=== PATIENT | male | born 1975 | race Hispanic/Latino ===

== ENCOUNTER 2018-12-21 19:36 | Emergency (ER) | payer OTHER ==
[2018-12-21 19:50] VITALS: BMI 39.7
[2018-12-21 19:56] VITALS: BP 175/108; PULSE 101; RESP 19; TEMP 98.4; O2SAT 98
--- NOTE | 2018-12-21 20:24 | ED PDOC ---
Arrival/HPI - General Historian: Patient - History of Present Illness Narrative History of Present Illness (Text): Patient is a 43 year old male with no significant history presenting with chief complaint of right ear pain which began after he hit the right side of his face on his car few days prior. He has applied warm compresses with no relief. He admits to hearing a popping sensation several times. Denies any discharge or bleeding from the ear. Time/Duration: 1 week Symptom Onset: Sudden Symptom Course: Unchanged Severity Level: Moderate <Kulwinder Stanton - Last Filed: 12/22/18 01:26> <Nestor Garcia - Last Filed: 12/22/18 06:03> - General Chief Complaint: ENT Problem Past Medical History - Provider Review Nursing Documentation Reviewed: Yes - Integumentary Hx Dermatological Disorder: Yes Other/Comment: skin biopsy to left hand. - Psychiatric Hx Substance Use: No <Kulwinder Stanton - Last Filed: 12/22/18 01:26> Family/Social History - Physician Review Nursing Documentation Reviewed: Yes Family/Social History: No Known Family HX Smoking Status: Never Smoked Hx Alcohol Use: No Hx Substance Use: No <Kulwinder Stanton - Last Filed: 12/22/18 01:26> Allergies/Home Meds <Kulwinder Stanton - Last Filed: 12/22/18 01:26> <Nestor Garcia - Last Filed: 12/22/18 06:03> Allergies/Adverse Reactions: Allergies environmental Allergy (Uncoded 12/21/18 19:50) CONGESTION Review of Systems - Physician Review All systems were reviewed & negative as marked: Yes - Review of Systems Eyes: absent: Vision Changes ENT: Hearing Changes. absent: Sore Throat, Rhinorrhea Respiratory: Normal Cardiovascular: Normal <Kulwinder Stanton - Last Filed: 12/22/18 01:26> Physical Exam Vital Signs Reviewed: Yes Vital Signs Temp Pulse Resp BP Pulse Ox 12/21/18 19:55 98.4 F 101 H 19 175/108 H 98 Temperature: Afebrile Blood Pressure: Hypertensive Pulse: Tachycardic Respiratory Rate: Normal Appearance: Positive for: Well-Appearing, Comfortable Pain Distress: None Mental Status: Positive for: Alert and Oriented X 3 - Systems Exam Head: Present: Atraumatic, Normocephalic Conjunctiva: Present: Normal Ears: Present: Erythema, Fluid Mouth: Present: Moist Mucous Membranes Nose (External): Present: Atraumatic <Kulwinder Stanton - Last Filed: 12/22/18 01:26> Vital Signs Temp Pulse Resp BP Pulse Ox 12/21/18 19:55 98.4 F 101 H 19 175/108 H 98 - Systems Exam Ears: Present: Other (exam of right ear) <Nestor Garcia - Last Filed: 12/22/18 06:03> Medical Decision Making ED Course and Treatment: Impression: 43 year old male with right ear pain Plan: - Clarithromycin - Reassess and disposition Prior Visits: Notes and results from previous visits were reviewed. Progress Notes: Patient appears comfortable, hemodynamically stable. Agrees to follow up with ENT and is in agreement with plan of management. <Kulwinder Stanton - Last Filed: 12/22/18 01:26> - Medication Orders Current Medication Orders: Discontinued Medications Clarithromycin (Biaxin Filmtab) 500 mg PO STAT STA; Protocol Stop: 12/21/18 20:36 Last Admin: 12/21/18 20:40 Dose: 500 mg Ibuprofen (Motrin Tab) 600 mg PO STAT STA Stop: 12/21/18 21:19 Last Admin: 12/21/18 21:28 Dose: 600 mg MAR Pain/Vitals Document 12/21/18 21:28 KASH (Rec: 12/21/18 21:28 CA [id number]) Pain Reassessment Is This A Pain ReAssessment? No Sleep Is patient sleeping during reassessment? No Presence of Pain Presence of Pain Yes Pain Scale Used Protocol: PSCALES Pain Scale Used Numeric Location Left, Right or Bilateral Right Pain Location Body Site Ear <Nestor Garcia - Last Filed: 12/22/18 06:03> - PA / MANAGER QUALITY COMPLIANCE / Resident Statement / has reviewed & agrees with the documentation as recorded. / has examined the patient and agrees with the treatment plan. <Nestor Garcia - Last Filed: 12/22/18 06:03> Disposition/Present on Arrival - Present on Arrival Any Indicators Present on Arrival: No History of DVT/PE: No History of Uncontrolled Diabetes: No Urinary Catheter: No History of Decub. Ulcer: No History Surgical Site Infection Following: None - Disposition Have Diagnosis and Disposition been Completed?: Yes Disposition Time: 20:37 <Kulwidner Stanton - Last Filed: 12/22/18 01:26> <Nestor Garcia - Last Filed: 12/22/18 06:03> - Disposition Diagnosis: Ear pain, Serous otitis media Disposition: HOME/ ROUTINE Condition: STABLE Discharge Instructions (ExitCare): Serous Otitis Media (DC) Additional Instructions: Follow up with your primary medical doctor and ENT doctor within 3-5 days Return to ED if symptoms worsen Prescriptions: Clarithromycin [Biaxin Filmtab] 500 mg PO BID #20 tab Referrals: Baldo Evans DO [Staff Provider] - Follow up with primary Forms: [employer] ([place])
== END 2018-12-21 21:35 | disposition home or self-care (01) ==
LOC: ED 19:36
DX: H92.01 Otalgia, right ear (principal); H65.90 Unspecified nonsuppurative otitis media, unspecified ear

== ENCOUNTER 2018-12-23 16:18 | Inpatient (IN) | payer OTHER ==
[2018-12-23 16:19] VITALS: BMI 39.7
--- NOTE | 2018-12-23 17:18 | ED PDOC ---
Arrival/HPI - General Chief Complaint: Palpitations Time Seen by Provider: 12/23/18 16:37 - History of Present Illness Narrative History of Present Illness (Text): 12/23/18 17:12 43 m with no significant pmhx presents to the ED with chief complaint of severe right ear pain. Patient states he was recently seen in this ED for the same ear pain, was prescribed abx, attempted to take but could barely tolerate due to upset stomach. Patient saw pcp today and was instructed to come to the ED for concern of mastoiditis. Patient was also incidentally found to be tachycardic but no lightheadedness, no chest pain, no dyspnea. Patient states he was unable to eat food since last night because of the dizziness and dry heaving. No tinnitus, no headache, no fever, no meningismus. Past Medical History - Cardiac Hx Hypertension: Yes - Integumentary Hx Dermatological Disorder: Yes Other/Comment: skin biopsy to left hand. - Psychiatric Hx Substance Use: No - Surgical History Other/Comment: skin biopsy - Anesthesia Hx Anesthesia: No Family/Social History Family/Social History: No Known Family HX Smoking Status: Never Smoked Hx Alcohol Use: No Hx Substance Use: No Allergies/Home Meds Allergies/Adverse Reactions: Allergies environmental Allergy (Uncoded 12/23/18 16:29) CONGESTION hay fever, pollen Review of Systems - Physician Review All systems were reviewed & negative as marked: Yes Physical Exam - Physical Exam Narrative Physical Exam (Text): 12/23/18 17:17 Gen: VS reviewed, alert, well developed, well nourished, nontoxic, mild distress Eye: EOMI, PERRL Ear: left ear normal inspection. Right ear has a tight and swollen ear canal with an obvious purulence seen, there is pain with pressing on the tragus, pain with pulling the pinna, there is no mastoid tenderness, no proptosis of the ear, there is mild tenderness just inferior to the right ear. Mouth: dry mucous memebrane Neck: no JVD, supple, no adenopathy CV: tachycardic, regular rhythm, no rubs,no murmur, S1, S2 Pulm: no distress, clear to auscultation, no wheeze, no rhonchi, breath sounds equal, no rales Ext: no edema Skin: good color, no rash, no cyanosis Psych: responds appropriately to questions, normal affect Neuro: oriented x3, CN2-12 intact grossly, motor intact, sensation intact Vital Signs Temp Pulse Resp BP Pulse Ox 12/23/18 16:29 126 H 18 98 12/23/18 16:19 98.7 F 120 H 18 151/89 H 98 Medical Decision Making ED Course and Treatment: 12/23/18 17:19 patient with severe right ear pain and canal swelling with extension of pain below the ear. clinical exam consistent with severe otitis externa. will get Ct to eval possible extension of infection outside the ear canal vs medial infection 12/23/18 20:[address] gilbert. patient to be admitted for intractable pain stemming from right ear infection, ct shows evidence of otitis media and mastoiditis. - RAD Interpretation Narrative RAD Interpretations (Text): 12/23/18 20:54 CT Temporal Bones Without IV contrast. FINDINGS: RIGHT OSSICLES AND MIDDLE EAR: The ossicles are intact. There is middle ear fluid detected compatible with otitis media. RIGHT COCHLEA: Normal 2-1/2 turns. RIGHT VESTIBULE: Unremarkable. RIGHT SEMICIRCULAR CANALS: No dehiscence. RIGHT VESTIBULAR AND COCHLEAR AQUEDUCTS: No enlargement. RIGHT FACIAL NERVE CANAL: No widening. RIGHT INTERNAL AUDITORY CANAL: No enlargement. RIGHT EXTERNAL AUDITORY CANAL: Patent. RIGHT CAROTID CANAL: No aberrancy. RIGHT JUGULAR FORAMEN: No enlargement. RIGHT MASTOID AIR CELLS: Opacified with multiple fluid levels detected compatible with acute right mastoiditis . RIGHT TEMPOROMANDIBULAR JOINT: No dislocation. LEFT OSSICLES AND MIDDLE EAR: The ossicles are intact. No middle ear fluid. LEFT COCHLEA: Normal 2-1/2 turns. LEFT VESTIBULE: Unremarkable. LEFT SEMICIRCULAR CANALS: No dehiscence. LEFT VESTIBULAR AND COCHLEAR AQUEDUCTS: No enlargement. LEFT FACIAL NERVE CANAL: No widening. LEFT INTERNAL AUDITORY CANAL: No enlargement. LEFT EXTERNAL AUDITORY CANAL: Patent. LEFT CAROTID CANAL: No aberrancy. LEFT JUGULAR FORAMEN: No enlargement. LEFT MASTOID AIR CELLS: Clear. LEFT TEMPOROMANDIBULAR JOINT: No dislocation. BONES: No acute osseous abnormality. VISUALIZED PARANASAL SINUSES: Mucoperiosteal thickening noted in the ethmoid and frontal sinuses bilaterally compatible with sinusitis. 1.3 cm mucous retention cyst or polyp in the inferior left maxillary sinus. The remaining visualized paranasal sinuses appeared satisfactorily developed and aerated. PERIAURICULAR SOFT TISSUES: Unremarkable. IMPRESSION: 1. Findings compatible with acute right otitis media and right mastoiditis. 2. Bilateral frontal and ethmoid sinusitis. 3. 1.3 cm mucous retention cyst or polyp in the inferior left maxillary sinus. Electronically signed on Dec 23, 2018 8:54:23 PM EDT by: Jayesh Rollins M.D., M.B.A., Certified By [employer] Trained MRI and CT Specialist Disposition/Present on Arrival - Present on Arrival Any Indicators Present on Arrival: No History of DVT/PE: No History of Uncontrolled Diabetes: No Urinary Catheter: No History of Decub. Ulcer: No History Surgical Site Infection Following: None - Disposition Have Diagnosis and Disposition been Completed?: Yes Diagnosis: Mastoiditis Disposition: HOSPITALIZED Disposition Time: 21:08 Patient Plan: Admission Patient Problems: Current Active Problems Problem Status Onset Mastoiditis Acute Condition: STABLE
[2018-12-23] MEDS ORDERED: Sodium Chloride 0.9% 1,000 ML IV STA (17:23)
[2018-12-23 17:43] LABS: VENOUS BLOOD GAS PO2 57 mm/Hg (30-55)
[2018-12-23 17:51] LABS: ALB/GLOB RATIO 1.3 (1.1-1.8); ALBUMIN 4.6 g/dL (3.0-4.8); ALT/SGPT 20 U/L (7-56); AST/SGOT 30 U/L (17-59); BLOOD UREA NITROGEN 12 mg/dL (7-21); CALCIUM 9.5 mg/dL (8.4-10.5); GFR NON-AFRICAN AMERICAN > 60
[2018-12-23 19:02] LABS: BASO # 0.02 K/mm3 (0.0-2.0); BASO % 0.2 % (0.0-3.0); EOS # 0.2 (0.0-0.7); EOS % 1.5 % (1.5-5.0); HEMOGLOBIN 15.8 g/dL (14.0-18.0); LYMPH # 2.4 (1.2-3.4); LYMPH % 19.8 % (22.0-35.0); MEAN CORPUSCULAR HEMOGLOBIN 29.2 pg (25.0-35.0); MEAN CORPUSCULAR HGB CONC 33.2 g/dl (31.0-37.0); MEAN PLATELET VOLUME 10.7 fl (7.0-11.0); MONO % 8.7 % (1.0-6.0); RBC 5.41 10^6/uL (3.5-6.1); RED CELL DISTRIBUTION WIDTH 12.9 % (11.5-14.5); WHITE BLOOD COUNT 11.9 10^3/uL (4.5-11.0)
[2018-12-23 19:32] LABS: BARBITURATES, UR NEGATIVE (NEGATIVE); BENZODIAZEPINES, UR NEGATIVE (NEGATIVE); OPIATES, UR NEGATIVE (NEGATIVE); PHENCYCLIDINE, UR NEGATIVE (NEGATIVE)
[2018-12-23] MEDS ORDERED: cefTRIAXone 1 GM/100 ML BAG IVPB STA (19:32)
--- NOTE | 2018-12-23 20:18 | CARD ---
APPROVED REPORT Date of service: 12/23/2018 EKG Measurement Heart [id number] <Conclusion> Sinus tachycardia Left axis deviation Incomplete right bundle branch block Moderate voltage criteria for LVH, may be normal variant Abnormal ECG
[2018-12-23] MEDS ORDERED: Vancomycin 500 mg Inj IVPB STA (21:03)
[2018-12-23] MEDS ORDERED: Vancomycin 2 GM in Sodium Chloride 0.9% 500 ML IVPB ONE (21:15)
[2018-12-23] MEDS: Sodium Chloride 0.9% 1,000 ML IV SCH (21:55)
[2018-12-23] MEDS ORDERED: POLYETHYLENE GLYCOL 3350 17 GM/Dose PACKET PO ONE (23:06)
[2018-12-23] MEDS: Oxycodone/Acetaminophen 5/325 mg Tab PO PRN (23:49)
--- NOTE | 2018-12-24 01:37 | HP ---
DATE OF EXAM: 12/23/2018 CHIEF COMPLAINT: Severe left ear pain with swelling and redness. HISTORY OF PRESENT ILLNESS: This is a 43-year-old man who infrequently comes to the office. He has not been to the office in well over a year. He developed right ear pain, came to the emergency room some 5 to 7 days ago, was diagnosed with an ear infection, given clarithromycin and sent home. The patient's symptoms worsened and so he came to see me in the office. There was cerumen in the right canal. The canal was narrow. There was no erythema on the pinna. Remainder of head and neck was otherwise unremarkable. Lungs were clear. His blood pressure was elevated, so medications were given for blood pressure. Ear drops were given for symptomatic relief. When the patient went home, he used the ear drops and developed what he reports as rather severe pain in the ear. Tylenol helped, as well as Advil or Aleve. Today, the pain has recurred again. He came to the emergency room with multiple complaints and worsened swelling in the postauricular area on the right ear as well as under the angle of jaw. He was sent to the emergency room for dose of a IV antibiotics, lab work, CT scan of the neck and ear. Workup in the ER showed his white count to be elevated. He was tachycardic. CT scan was suspicious for mastoiditis. He was given a dose of IV Rocephin, and arrangements were made for admission. PAST MEDICAL HISTORY: Significant only for hypertension recently diagnosed. Negative for diabetes, tuberculosis, asthma, seizures. There were no prior hospitalizations or surgeries since his childhood when he was hospitalized with ear infection. Looking through his office chart, there were several ear infections over the course of time in the last many years. MEDICATIONS: He does not take any medications. ALLERGIES: HE HAS NO KNOWN ALLERGIES TO MEDICATIONS. SOCIAL HISTORY: He does not smoke or drink alcohol. PHYSICAL EXAMINATION: GENERAL: The patient is seen the emergency room with his mother, an employee at [employer], at the bedside. The patient is awake, alert, clear. Pain has subsided because of the IV analgesics given. HEENT: Conjunctivae are pink. Mucous membranes are moist. The right ear has some generalized swelling around the ear and the angle of the jaw. Lymph nodes are palpable in postauricular and anterior cervical areas. LUNGS: Show good aeration in right and left. HEART: Regular, not tachycardic. EXTREMITIES: Show no edema. ABDOMEN: Obese. IMPRESSION: Acute otitis media resulting in a CT diagnosis report of acute mastoiditis. PLAN: The patient will be admitted to the medical floor. IV antibiotics will continue. We will ask ID and ENT to consult for their expertise in this unusual case. Gregory Canas MD MTDD
[2018-12-24] MEDS: Oxycodone/Acetaminophen 5/325 mg Tab PO PRN (05:00)
[2018-12-24] MEDS: Sodium Chloride 0.9% 1,000 ML IV SCH ×3 (05:01→19:09)
[2018-12-24] MEDS ORDERED: cefTRIAXone 1 gm 1 GM/100 ML BAG IV SCH (10:00)
--- NOTE | 2018-12-24 11:10 | CT ---
Date of service: 12/23/2018 PROCEDURE: CT OF THE TEMPORAL BONES WITHOUT CONTRAST HISTORY: right ear pain COMPARISON: None available. TECHNIQUE: High resolution axial images of the temporal bones were obtained. Coronal and sagittal reformats were generated. Radiation dose: Total exam DLP = 1019.25 mGy-cm. This CT exam was performed using one or more of the following dose reduction techniques: Automated exposure control, adjustment of the mA and/or kV according to patient size, and/or use of iterative reconstruction technique. FINDINGS: RIGHT TEMPORAL BONE: RIGHT MIDDLE EAR: There opacification of the right middle ear cavity. The scutum appears eroded compared to the left side. Possible cholesteatoma. There is no disruption of the ossicles. RIGHT INNER EAR: Cochlea: Normal Semicircular canals: Normal RIGHT MASTOID AIR CELLS: Opacification of the right mastoid air cells. RIGHT INTERNAL AUDITORY CANAL: Normal RIGHT EXTERNAL AUDITORY CANAL: Partial opacification RIGHT VESTIBULAR AND COCHLEAR AQUEDUCT: Normal OTHER: LEFT TEMPORAL BONE: LEFT MIDDLE EAR: Normal LEFT INNER EAR: Cochlea: Normal Semicircular canals: Normal LEFT MASTOID AIR CELLS: Normal LEFT INTERNAL AUDITORY CANAL: Normal LEFT EXTERNAL AUDITORY CANAL: Normal LEFT VESTIBULAR AND COCHLEAR AQUEDUCTS: Normal OTHER FINDINGS: Partial opacification of the ethmoid air cells. IMPRESSION: There opacification of the right middle ear cavity. The scutum appears eroded compared to the left side. Possible cholesteatoma. There is no disruption of the ossicles.. Opacification of the right mastoid air cells consistent with mastoiditis.
[2018-12-24] MEDS: Piperacillin/Tazobact 3.375 gm 100 ML IVPB SCH ×3 (11:59→23:29)
--- NOTE | 2018-12-24 14:47 | PN ---
DATE: 12/24/2018 SUBJECTIVE: The patient is a 43-year-old male who had developed some painful swelling on the right jaw area involving the right ear. As the patient's symptoms worsened, he would evaluated, treated with antibiotics and underwent cerumen disimpaction, still the pain worsened until the patient presented to the emergency room where a CAT scan showed possible mastoiditis, therefore the patient is admitted. He is currently receiving Zosyn intravenously. EKG showed sinus tachycardia with left axis deviation and incomplete right bundle branch block. When seen today, he is sitting up in bed. His vital signs are stable. He is awake, alert, and oriented. The swelling has somewhat subsided in the right ear area. However, the patient still feels some discomfort. PHYSICAL EXAMINATION: VITAL SIGNS: Stable. HEENT: There is tenderness on palpation over the right TMJ. The right ear is also erythematous and tender on palpation. LUNGS: Clear to auscultation and percussion. HEART: Regular. ASSESSMENT AND PLAN: We are continuing with intravenous antibiotics for now. The patient to be reevaluated in the morning and we will continue close followup. Dwight Canas MD
[2018-12-24] MEDS: Ciprofloxacin/Dexamethasone OTIC SUSP AD SCH (17:19)
--- NOTE | 2018-12-24 20:36 | CON ---
DATE OF CONSULTATION: 12/24/2018 HISTORY OF PRESENT ILLNESS: This is a 43-year-old white male with a 5-day history of progressive otalgia and otorrhea involving the right ear. The patient was seen in the emergency room at [facility] and was sent home on antibiotics, which subsequently made him nauseous and vomit, and was reassessed as an outpatient in a private medical doctor's office. Physical examination apparently revealed subsequent urine infection, and subsequent CT scan examination was performed, which revealed evidence of air fluid level within the right mastoid air cells as well as opacification within the right middle ear. The patient admits to decreased hearing and otorrhea noted on the right side as well. He denies previous history of significant otitis media in the past and denies any facial paralysis, vertigo, or meningeal signs at this time. PAST MEDICAL HISTORY: Significant for hypertension and remote past history of ear infections involving his right ear in the past. ALLERGIES: HE HAD NO KNOWN DRUG ALLERGIES. SOCIAL HISTORY: Negative. MEDICATIONS: He was not on any medications prior to this recent ear infection. PHYSICAL EXAMINATION: GENERAL: He was alert and oriented x3. HEENT: Revealed a right external ear canal to be patent. There was some tenderness to palpation involving the auricle as well as the preauricular region on palpation. There was purulent otorrhea noted from the right ear. There was no posterior mastoid tenderness or erythema present. The patient had evidence of a right septal deviation with some thick mucus secretions present. Oral pharyngeal exam was unremarkable. NECK: Examination was also within normal limits. NEUROLOGICALLY: Cranial nerves II through XII grossly intact. Did exhibits a slight left eyelid ptosis compared to the right side. IMPRESSION: The patient has a severe right otitis media separative with spontaneous perforation of the tympanic membrane. The air fluid level within the mastoid cavity is secondary to the acute separative process present. No overt signs of mastoiditis with a subdural to subperiosteal abscess present. PLAN: I will continue with the IV Rocephin and also to initiate Ciprodex four drops to the right ear b.i.d., and we will evaluate him for resolution of medical therapy. If you have any further concerns regarding this patient, please contact me directly. Thank you for allowing us to participate in the care of this patient. Silver Velasco DO
--- NOTE | 2018-12-24 22:53 | CP.PCM.CON ---
History of Present Illness - History of Present Illness History of Present Illness: 43 year old male with obesity BMI 40 [place] [facility] [place] of severe right ear pain, also affecting the back of the ear. He states that it started 1-2 days ago. He felt like one of his lymph nodes are swollen on the right side of the neck. He also feels his right ear is full. He denies fever or chills, no rhinorrhea, no sore throat, no cough. He also denies lightheadedness, no nausea or vomiting, no abdominal pain, no SOB, no dysphagia, no diarrhea, no dysuria. CT head is suggestive of right sided mastoiditis. Infectious diseases consult is requested to further evaluate and manage. Past Patient History - Past Social History Smoking Status: Never Smoked - CARDIAC Hx Cardiac Disorders: Yes Hx Hypertension: Yes - PULMONARY Hx Respiratory Disorders: No - NEUROLOGICAL Hx Neurological Disorder: No - HEENT Hx HEENT Problems: Yes (left eye lid droop, ptosis) Other/Comment: "sinus disease". "gum disease" - RENAL Hx Chronic Kidney Disease: Yes Hx Kidney Stones: Yes - ENDOCRINE/METABOLIC Hx Endocrine Disorders: No - HEMATOLOGICAL/ONCOLOGICAL Hx Blood Disorders: No - INTEGUMENTARY Hx Dermatological Problems: Yes Other/Comment: skin biopsy to left hand. - MUSCULOSKELETAL/RHEUMATOLOGICAL Hx Falls: No - GASTROINTESTINAL Hx Gastrointestinal Disorders: Yes Hx Gastroesophageal Reflux: Yes - GENITOURINARY/GYNECOLOGICAL Hx Genitourinary Disorders: No - PSYCHIATRIC Hx Substance Use: No - SURGICAL HISTORY Hx Surgeries: Yes Other/Comment: skin biopsy - ANESTHESIA Hx Anesthesia: No Meds Allergies/Adverse Reactions: Allergies Allergy/AdvReac Type Severity Reaction Status Date / Time environmental Allergy CONGESTION Uncoded 12/23/18 16:29 - Medications Medications: Current Medications Sodium Chloride (Sodium Chloride 0.9%) 1,000 mls @ 150 mls/hr IV .[id number] [facility] Last Admin: 12/24/18 05:01 Dose: Not Given Ceftriaxone Sodium (Rocephin 1 Gram Ivpb) 1 gm in 100 mls @ 100 mls/hr IV DAILY [facility]; Protocol Ibuprofen (Motrin Tab) 400 mg PO BID FITO Stop: 12/25/18 23:00 Ketorolac Tromethamine (Toradol) 15 mg IVP Q6 PRN PRN Reason: Pain, moderate (4-7) Last Admin: 12/24/18 06:05 Dose: 15 mg Metoprolol Tartrate (Lopressor) 25 mg PO BRKDIN FITO Oxycodone/Acetaminophen (Percocet 5/325 Mg Tab) 1 tab PO Q4H PRN PRN Reason: Pain, moderate (4-7) Stop: 12/26/18 23:37 Last Admin: 12/24/18 05:00 Dose: 1 tab Physical Exam - Constitutional Appears: Non-toxic, No Acute Distress - Head Exam Head Exam: NORMAL INSPECTION - ENT Exam ENT Exam: Mucous Membranes Moist Additional comments: right mastoid with tenderness noted - Neck Exam Neck exam: Negative for: Meningismus - Respiratory Exam Respiratory Exam: Decreased Breath Sounds - Cardiovascular Exam Cardiovascular Exam: +S1, +S2 - GI/Abdominal Exam GI & Abdominal Exam: Soft. absent: Tenderness Results - Vital Signs Recent Vital Signs: Last Vital Signs Temp 98.2 F 12/23/18 22:15 Pulse 101 H 12/23/18 22:15 Resp 18 12/23/18 22:31 BP 152/89 H 12/23/18 22:15 Pulse Ox 98 12/23/18 22:15 - Labs Result Diagrams: 12/23/18 18:50 12/23/18 17:20 Labs: Laboratory Results - last 24 hr 12/23/18 12/23/18 12/23/18 17:20 17:20 17:30 WBC RBC Hgb Hct MCV MCH MCHC RDW Plt Count MPV Neut % (Auto) Lymph % (Auto) Whitley % (Auto) Eos % (Auto) Baso % (Auto) Lymph # (Auto) Whitley # (Auto) Eos # (Auto) Baso # (Auto) Absolute Neuts (auto) pO2 57 H VBG pH 7.40 VBG pCO2 44.0 VBG HCO3 27.3 VBG Total CO2 28.7 H VBG O2 Sat (Calc) 92.7 H VBG Base Excess 2.0 VBG Potassium 4.0 Glucose 110 Lactate 1.3 FiO2 21.0 Sodium 138 137.0 Potassium 3.7 Chloride 100 103.0 Carbon Dioxide 27 Anion Gap 14 BUN 12 Creatinine 0.8 Est GFR ( Amer) > 60 Est GFR (Non-Af Amer) > 60 Random Glucose 109 Calcium 9.5 Total Bilirubin 0.7 AST 30 ALT 20 Alkaline Phosphatase 72 Total Protein 8.1 Albumin 4.6 Globulin 3.4 Albumin/Globulin Ratio 1.3 TSH 3rd Generation 0.99 Venous Blood Potassium 4.0 Urine Opiates Screen Urine Methadone Screen Ur Barbiturates Screen Ur Phencyclidine Scrn Ur Amphetamines Screen U Benzodiazepines Scrn U Oth Cocaine Metabols U Cannabinoids Screen 12/23/18 12/23/18 18:50 18:50 WBC 11.9 H RBC 5.41 Hgb 15.8 Hct 47.6 MCV 88.0 MCH 29.2 MCHC 33.2 RDW 12.9 Plt Count 258 MPV 10.7 Neut % (Auto) 69.8 H Lymph % (Auto) 19.8 L Whitley % (Auto) 8.7 H Eos % (Auto) 1.5 Baso % (Auto) 0.2 Lymph # (Auto) 2.4 Whitley # (Auto) 1.0 H Eos # (Auto) 0.2 Baso # (Auto) 0.02 Absolute Neuts (auto) 8.33 H pO2 VBG pH VBG pCO2 VBG HCO3 VBG Total CO2 VBG O2 Sat (Calc) VBG Base Excess VBG Potassium Glucose Lactate FiO2 Sodium Potassium Chloride Carbon Dioxide Anion Gap BUN Creatinine Est GFR ( Amer) Est GFR (Non-Af Amer) Random Glucose Calcium Total Bilirubin AST ALT Alkaline Phosphatase Total Protein Albumin Globulin Albumin/Globulin Ratio TSH 3rd Generation Venous Blood Potassium Urine Opiates Screen Negative Urine Methadone Screen Negative Ur Barbiturates Screen Negative Ur Phencyclidine Scrn Negative Ur Amphetamines Screen Negative U Benzodiazepines Scrn Negative U Oth Cocaine Metabols Negative U Cannabinoids Screen Negative Assessment & Plan - Assessment and Plan (Free Text) Plan: Assessment consider right sided otitis media with mastoiditis obesity BMI 40 Plan started Zosyn and will follow up blood cx will monitor clinical response
[2018-12-25] MEDS: Sodium Chloride 0.9% 1,000 ML IV SCH (02:03)
[2018-12-25] MEDS: Oxycodone/Acetaminophen 5/325 mg Tab PO PRN (03:28)
[2018-12-25] MEDS: Piperacillin/Tazobact 3.375 gm 100 ML IVPB SCH ×3 (05:15→17:44)
[2018-12-25] MEDS: Ciprofloxacin/Dexamethasone OTIC SUSP AD SCH ×2 (09:45→17:44)
--- NOTE | 2018-12-25 17:07 | CP.PCM.PN ---
Subjective - Date & Time of Evaluation Date of Evaluation: 12/25/18 Time of Evaluation: 04:30 - Subjective Subjective: Patient states feeling better today Had some otalgia with insertion of drops - now better c/o decreased hearing Otorrhea / otalgia improved Objective - Vital Signs/Intake and Output Vital Signs (last 24 hours): Temp Pulse Resp BP Pulse Ox 97.8 F 83 19 149/91 H 96 12/24/18 16:39 12/25/18 09:44 12/24/18 16:39 12/25/18 09:44 12/24/18 16:39 - Medications Medications: Current Medications Ciprofloxacin/Dexamethasone (Ciprodex Otic) 4 drop AD BID [facility] Last Admin: 12/25/18 09:45 Dose: 4 drop Sodium Chloride (Sodium Chloride 0.9%) 1,000 mls @ 150 mls/hr IV .Q6H40M [facility] Last Admin: 12/25/18 02:03 Dose: 150 mls/hr Piperacillin Sod/Tazobactam Sod (Zosyn 3.375 In Ns 100ml) 100 mls @ 200 mls/hr IVPB Q6 [facility]; Protocol Stop: 12/31/18 12:01 Last Admin: 12/25/18 12:13 Dose: 200 mls/hr Ibuprofen (Motrin Tab) 400 mg PO Q8 PRN PRN Reason: Pain, Mild (1-3) Last Admin: 12/25/18 15:03 Dose: 400 mg Ketorolac Tromethamine (Toradol) 15 mg IVP Q6 PRN PRN Reason: Pain, moderate (4-7) Last Admin: 12/25/18 12:13 Dose: 15 mg Metoprolol Tartrate (Lopressor) 25 mg PO BRKDIN [facility] Last Admin: 12/25/18 09:44 Dose: 25 mg Oxycodone/Acetaminophen (Percocet 5/325 Mg Tab) 1 tab PO Q4H PRN PRN Reason: Pain, moderate (4-7) Stop: 12/26/18 23:37 Last Admin: 12/25/18 03:28 Dose: 1 tab - Labs Labs: 12/23/18 18:50 12/23/18 17:20 - Constitutional Appears: Well, Non-toxic, No Acute Distress - Head Exam Head Exam: ATRAUMATIC, NORMAL INSPECTION, NORMOCEPHALIC - ENT Exam ENT Exam: Mucous Membranes Moist (AD - EAC with decreased purulence / + erythema EAC / TM , = WNL , Nose - RSD ), Normal Oropharynx - Neck Exam Neck Exam: Normal Inspection - Respiratory Exam Respiratory Exam: NORMAL BREATHING PATTERN Assessment and Plan (1) Acute suppurative otitis media of right ear with spontaneous rupture of tympanic membrane Assessment & Plan: symptoms improving continue with current treatment - recommend outpatient antibiotics / otic drops as per ID patient to follow up as outpatient next week Status: Acute (2) Mastoiditis Status: Acute
[2018-12-26] MEDS: Piperacillin/Tazobact 3.375 gm 100 ML IVPB SCH ×2 (00:04→05:58)
[2018-12-26 00:38] LABS: URINE BILIRUBIN NEGATIVE (NEGATIVE); URINE BLOOD TRACE-LYSED (NEGATIVE); URINE GLUCOSE (UA) NEGATIVE (NEGATIVE); URINE LEUKOCYTE ESTERASE NEGATIVE Leu/uL (NEGATIVE); URINE PROTEIN NEGATIVE mg/dL (<30 mg/dL); URINE UROBILINOGEN 0.2 E.U./dL (<1 E.U./dL)
[2018-12-26 00:41] LABS: URINE APPEARANCE CLEAR (CLEAR); URINE COLOR YELLOW (YELLOW)
[2018-12-26 01:14] LABS: URINE BACTERIA FEW /hpf; URINE RBC 0 - 2 /hpf (0-2)
[2018-12-26] MEDS: Sodium Chloride 0.9% 1,000 ML IV SCH (06:46)
[2018-12-26 07:36] LABS: BASO # 0.05 K/mm3 (0.0-2.0); BASO % 0.5 % (0.0-3.0); EOS # 0.2 (0.0-0.7); EOS % 2.5 % (1.5-5.0); HEMOGLOBIN 13.9 g/dL (14.0-18.0); LYMPH # 2.3 (1.2-3.4); LYMPH % 23.8 % (22.0-35.0); MEAN CELL VOLUME 87.8 fl (80.0-105.0); MEAN CORPUSCULAR HEMOGLOBIN 28.8 pg (25.0-35.0); MEAN CORPUSCULAR HGB CONC 32.8 g/dl (31.0-37.0); MONO # 0.8 (0.1-0.6); MONO % 8.7 % (1.0-6.0); RBC 4.83 10^6/uL (3.5-6.1); RED CELL DISTRIBUTION WIDTH 12.7 % (11.5-14.5); WHITE BLOOD COUNT 9.5 10^3/uL (4.5-11.0)
[2018-12-26 08:05] LABS: BLOOD UREA NITROGEN 10 mg/dL (7-21); CALCIUM 8.7 mg/dL (8.4-10.5); GFR NON-AFRICAN AMERICAN > 60
[2018-12-26] MEDS: Ciprofloxacin/Dexamethasone OTIC SUSP AD SCH (09:23)
[2018-12-26 09:24] VITALS: BP 157/97; PULSE 65
[2018-12-26 10:22] VITALS: RESP 20; TEMP 98.4; O2SAT 97
--- NOTE | 2018-12-26 10:28 | PN ---
DATE: 12/25/2018 SUBJECTIVE: The patient was seen this morning in room 570, bed 1, sitting out of bed in a chair, status post left hip replacement. I spoke with him about his help at home, unfortunately everyone will be out of the house, working at the [employer] business. Therefore, we are looking into [facility] for acute rehab, if that fails then our alternative will be Transitional Care Unit at [facility] where the family can visit and he can continue to achieve super care. Since the patient had urinary tract infection approximately a week or two ago. We will recheck UA, C & S and offer some milk of magnesia for his complaints of constipation. Gregory Canas MD
[2018-12-26] MEDS ORDERED: Amoxicillin-Clav 875-125 mg Tab PO SCH (11:00)
--- NOTE | 2018-12-26 12:28 | CP.PCM.PN ---
Subjective - Date & Time of Evaluation Date of Evaluation: 12/25/18 Time of Evaluation: 10:45 - Subjective Subjective: Patient feels much better, no fevers. Objective - Vital Signs/Intake and Output Vital Signs (last 24 hours): Temp Pulse Resp BP Pulse Ox 97.8 F 97 H 19 151/90 H 96 12/24/18 16:39 12/24/18 17:19 12/24/18 16:39 12/24/18 17:19 12/24/18 16:39 Intake and Output: 12/24/18 12/25/18 18:59 06:59 Intake Total 1900 Balance 1900 - Medications Medications: Current Medications Ciprofloxacin/Dexamethasone (Ciprodex Otic) 4 drop AD BID [facility] Last Admin: 12/24/18 17:19 Dose: 4 drop Sodium Chloride (Sodium Chloride 0.9%) 1,000 mls @ 150 mls/hr IV .Q6H40M [facility] Last Admin: 12/24/18 19:09 Dose: 150 mls/hr Piperacillin Sod/Tazobactam Sod (Zosyn 3.375 In Ns 100ml) 100 mls @ 200 mls/hr IVPB Q6 [facility]; Protocol Stop: 12/31/18 12:01 Last Admin: 12/24/18 17:26 Dose: 200 mls/hr Ibuprofen (Motrin Tab) 400 mg PO Q8 PRN PRN Reason: Pain, Mild (1-3) Last Admin: 12/24/18 16:24 Dose: 400 mg Ketorolac Tromethamine (Toradol) 15 mg IVP Q6 PRN PRN Reason: Pain, moderate (4-7) Last Admin: 12/24/18 19:08 Dose: 15 mg Metoprolol Tartrate (Lopressor) 25 mg PO BRKDIN [facility] Last Admin: 12/24/18 17:19 Dose: 25 mg Oxycodone/Acetaminophen (Percocet 5/325 Mg Tab) 1 tab PO Q4H PRN PRN Reason: Pain, moderate (4-7) Stop: 12/26/18 23:37 Last Admin: 12/24/18 05:00 Dose: 1 tab - Labs Labs: 12/23/18 18:50 12/23/18 17:20 - Constitutional Appears: Chronically Ill - Head Exam Head Exam: NORMAL INSPECTION - Respiratory Exam Respiratory Exam: Decreased Breath Sounds - Cardiovascular Exam Cardiovascular Exam: +S1, +S2 - GI/Abdominal Exam GI & Abdominal Exam: Soft. absent: Tenderness Assessment and Plan - Assessment and Plan (Free Text) Plan: Assessment consider right sided otitis media with mastoiditis obesity BMI 40 Plan on Zosyn and Cirpodex; may switch Zosyn to Augmentin to complete 7-[address] Canas patient to follow up with ENT as outpatient
== END 2018-12-26 12:17 | disposition home or self-care (01) | DRG 153 ==
LOC: ED 16:18 → ERH 21:06 → 3RSO 22:08
PROVIDERS: ADMIT Internal Medicine; ATTEND Internal Medicine
DX: H70.001 Acute mastoiditis without complications, right ear (principal); Z68.41 Body mass index [BMI] 40.0-44.9, adult; H66.011 Acute suppurative otitis media with spontaneous rupture of ear drum, right ear; J32.2 Chronic ethmoidal sinusitis; I10 Essential (primary) hypertension; I45.10 Unspecified right bundle-branch block; K59.00 Constipation, unspecified; E66.9 Obesity, unspecified; Z96.642 Presence of left artificial hip joint